=== PATIENT | female | born 1980 | race Hispanic/Latino ===

== ENCOUNTER 2018-04-21 03:45 | Inpatient (IN) | payer MEDICAID, SELFPAY ==
[2018-04-21] MEDS: Lactated Ringers 1,000 ML 50 ML IV ×2 (04:50→06:00)
[2018-04-21 05:07] VITALS: BMI 33.5
[2018-04-21 05:16] LABS: Hemoglobin 12.7 g/dl (12.0-15.0); Mean Corp Hgb Conc 33.4 g/gl (32-36); Mean Corpuscular Hgb 29.4 pg (27.0-32.0); Mean Platelet Vol. 11.1 fl (6.2-12.0); Platelet Count 172 K/mm3 (150-450); RBC Distribution Width CV 13.2 % (11.6-14.6); RBC Distribution Width SD 41.8 fl (35.1-43.9); Red Blood Count 4.32 M/mm3 (4.2-5.4); White Blood Count 9.8 K/mm3 (4.4-11.0)
[2018-04-21 05:18] LABS: Scan Indicated on CBC? Y/N NO
--- NOTE | 2018-04-21 05:45 | PCM.HP.OB ---
History Date of Admission: 04/21/18 Final COCO: 05/20/18 Final COCO Source: US <20 weeks Gestational age: 35 Weeks and 6 Days History of this : This is a 38 year-old, G 5P4at 35 weeks gestational age c/o contractions- patient was found to be 4-5 cm and changed to 7cm in less than one hour of observation. pt has h/o GDMA1- controlled. pt denies other concerns at this time. Medical History: Medical History (Last Updated 04/21/18 @ 05:46 by Dayana Sharif MD) Advanced maternal age (AMA) in Gestational diabetes O24.419 NKDA Home Medications: Home Medications Prenatabs FA 1 tab PO DAILY 04/21/18 Smoking Status: Never smoker Alcohol: None Number of Fetus(es): 1 Heart Tracin mod dmitry, + accels, no decels. TOCO Analysis: q2-4 min History Past Pregnancies: Past Pregnancies Delivery Date Name GA/Weeks Outcome Route Weight Infant Gender Labor Length Anesthesia Delivery Location Provider FOB Labs: O+, HIV neg, HEPB neg, RUB Imm, Syph Neg, GBS unknown - rapid is pending Expected Infant Delivery Method: Spontaneous Vaginal Review of Systems Constitutional: Denies: Anorexia Cardiovascular: Denies: Chest Pain Gastrointestinal: Reports: Abdominal Pain - from contraction pain Physical Exam General: Alert, Oriented x3 Abdomen: Soft, Gravid Neurological: Cranial nerves II-XII grossly intact COMPLETION ENGINEER: Normal external genitalia Estimated gestational size: Appropriate for gestational size Presentation: Cephalic Cervix Dilation (cm): 7.5 Station: -2 Effacement (%): 80 Assessment/Plan This is a 38 year-old, G 5, P4, at 35 weeks gestational age. in active labor- h/o GDMA1- well controlled 1) admit to L&D 2) monitor FHR/TOCO 3) epidural 4) Rapid GBS 5) anticipate
[2018-04-21] MEDS: fentaNYL-bupivacaine (epidural) 100 ML BAG EPIDURAL (05:46)
[2018-04-21] MEDS: Betamethasone/Betamethasone 30 MG/5 ML Vial 12 MG IM (06:12)
[2018-04-21 06:21] LABS: Bedside Glucose 104 mg/dL (70-110)
--- NOTE | 2018-04-21 06:33 | PLAC_PTH ---
PATIENT: QUINTEN CARDOZA LOC: [facility] U#:[id number] AGE/SX: 38/F ROOM: [facility] RE04/21/[address]: Dr. Dayana Sharif, MDDOB: 1980 BED: 1 DIS: 04/23/2018 SPEC #: [id number] RECD: 04/22/18 06:15 STATUS: PIERRE MARÍA #: [id number] THU: 04/21/18 06:[address]: Dayana Sharif DEPT: SURGICAL PATHOLOGY RECD BY: Agusto Merrill Tissues: Placenta, NOS Procedures: Surgery Specimen Level V HEADER OPERATION: Vaginal delivery PRE-OP DIAGNOSIS: labor TISSUE SUBMITTED: Placenta MICROSCOPIC DIAGNOSIS Placenta: Placental disc - third trimester placenta (310 gm). Focal chronic villitis of unknown etiology. Focal area of intraparenchymal hemorrhage. Focal increased perivillous and intervillous fibrin deposition. Membranes - no pathologic diagnosis. Umbilical cord - three blood vessels and no pathologic diagnosis. MAR:landry 04/24/18 MICROSCOPIC DESCRIPTION Slides are reviewed. GROSS DESCRIPTION SPECIMEN: PLACENTA / CLINICAL INFORMATION: A. Weight: 2.175 kg B. Gestational Age: 35 weeks C. Sex: Male PLACENTAL WEIGHT (POST FIXATION): 310 gm PLACENTAL DIMENSIONS: 16 x 11 x 3 cm PLACENTAL SHAPE: Usual ovoid PLACENTAL WEIGHT FOR GESTATIONAL AGE: Within 10-99th percentile MEMBRANES - Present A. Insertion: Marginal B. Site of rupture from edge: 5 cm from edge of placental disc C. Color of membrane: Street-mcguire D. Abnormalities: None UMBILICAL CORD - Present A. Color: Street[place]mcguire B. Insertion: Paracentral C. Length: 23 cm D. Diameter: 1.3 cm E. Number of vessels: Three F. Abnormalities: None PLACENTAL DISC - Present A. Color of surface: Street-mcguire B. surface abnormalities: None C. Maternal cotyledons: Intact with minimal tears D. Attached retro placental clot: No clot E. Cut surface: Dark red and spongy F. Lesions: Sections reveal two street, indurated lesions each measuring 0.3 cm in greatest dimension. G. Separate clot: Absent SECTIONS SUBMITTED: 1. Membrane roll 2. Cord, maternal end 3. Cord, end 4. Placental disc, and maternal surfaces, lesions 5. Placental disc, and maternal surfaces 6. Placental disc, and maternal surfaces SJ:landry 04/23/18 TC:5 CPT: 34833
[2018-04-21 06:37] LABS: Group B Strep DNA By PCR POSITIVE (Negative); Probe Check PASS
[2018-04-21] MEDS: Oxytocin 30 units/NS 500 ml 30 UNITS/500 ML IV.SOLN 334 UNITS IV (06:40)
--- NOTE | 2018-04-21 06:41 | PCM.OB.VAG ---
Vaginal Delivery Maternal Presentation: Active Labor Amniotic Membrane Rupture Type: Artificial Amniotic Fluid Description: Clear Final COCO: 05/20/18 Gestational age: 35 Weeks and 6 Days Date of Procedure: 04/21/18 Pre-Operative Diagnosis: spontaneous labor Post-Operative Diagnosis: same, Live male Surgery/ Procedure Performed: Spontaneous Vaginal Delivery Type of Anesthesia: Epidural Description of Procedure: of live male infant born without complication. Umbilical cord very short at time of delivery- clamped and cut. vigorous. Presentation: Vertex Placental Delivery Description: Spontaneous Cord Vessel Description: 3 Vessels Cord Entanglement: None Estimated Blood Loss: 250 (1 minute): 8 (5 minute): 9 Episiotomy Description: None Laceration: None Medications given after delivery: IV Pitocin Complications: None
[2018-04-21] MEDS: Oxytocin 30 units/NS 500 ml 30 UNITS/500 ML IV.SOLN 167 UNITS IV (07:40)
[2018-04-21 08:45] LABS: Bedside Glucose 103 mg/dL (70-110)
[2018-04-21 08:45] LABS: Bedside Glucose 96 mg/dL (70-110)
[2018-04-21 11:12] VITALS: BP 99/48; PULSE 70; RESP 18; TEMP 36.7
[2018-04-21 15:18] VITALS: BP 104/68; PULSE 85; RESP 20; TEMP 36.8
[2018-04-21] MEDS: Ibuprofen 600 MG Tablet PO (19:56)
[2018-04-21 19:57] VITALS: BP 96/44; PULSE 85; RESP 16; TEMP 36.8
[2018-04-22 00:30] VITALS: BP 101/54; PULSE 75; RESP 16; TEMP 36.4
[2018-04-22 04:30] VITALS: BP 100/51; PULSE 75; RESP 16; TEMP 36.7
[2018-04-22 06:46] LABS: Bedside Glucose 98 mg/dL (70-110)
[2018-04-22 08:33] VITALS: BP 102/61; PULSE 77; RESP 16; TEMP 36.6; O2SAT 97
--- NOTE | 2018-04-22 08:48 | PN.OBGYN_ITS ---
Patient Problems: Active and Suspected Problems (Last Updated 04/21/18 @ 05:46 by Dayana Camarena MD) Gestational diabetes (Acute) Subjective: Doing well per patient and nursing staff. Speaks Taiwanese. Ambulating and taking PO without difficulty. Voiding and passing flatus. . Taking Motrin for pain. Denies chest pain, SOB, leg pain, increased vaginal bleeding or clots. Planning to go home tomorrow. - Physical Exam General: Alert, Oriented x3, Cooperative Lungs: Clear to auscultation, Normal air movement, No rhonchi, No wheeze Cardiovascular: Regular rate, Regular Rhythm, No murmurs Abdomen: Bowel Sounds Present, Soft, - - fundus firm 2 below U Extremities: No edema Psych/Mental Status: Normal Affect, Appropriate Vital Signs Temp Pulse Resp BP Pulse Ox 97.8 F 77 16 102/61 97 04/22/18 08:33 04/22/18 08:33 04/22/18 08:33 04/22/18 08:33 04/22/18 08:33 Oxygen Delivery Method Room Air Weight: 183 lb 9.6 oz Body Mass Index (BMI) 33.5 Intake and Output for Last 24 Hours 04/20/18 04/21/18 04/22/18 23:59 23:59 23:59 Intake Total 1300 / 1300 Output Total 400 / 400 Balance 900 / 900 POC Glucose 04/22/18 04/21/18 04/21/18 06:37 08:39 04:41 POC Glucose 98 103 96 Medical Necessity - Tobacco Use Smoking Status: Never smoker Assessment/Plan All Active Problems (Last Updated 04/21/18 @ 05:46 by Dayana Sharif MD) Gestational diabetes (Acute) A: vaginal GDM P: 1) Routine PP orders 2) BS slightly elevated, less than 103 3) Planning D/C home tomorrow.
[2018-04-22 13:59] VITALS: BP 109/56; PULSE 85; RESP 16; TEMP 37.1; O2SAT 100
[2018-04-22 19:55] VITALS: BP 118/61; PULSE 74; RESP 17; TEMP 36.7
[2018-04-23 01:10] VITALS: BP 92/47; PULSE 77; RESP 17; TEMP 36.2
--- NOTE | 2018-04-23 07:31 | PN.OBGYN_ITS ---
Patient Problems: Active and Suspected Problems (Last Updated 04/21/18 @ 05:46 by Dayana Camarena MD) Gestational diabetes (Acute) Objective: pt seen at bedside, doing well. pt reports pain well controlled- lochia mild. Breast feeding. - Physical Exam General: Alert, Oriented x3 Vital Signs Temp Pulse Resp BP Pulse Ox 97.2 F L 77 17 92/47 L 100 04/23/18 01:10 04/23/18 01:10 04/23/18 01:10 04/23/18 01:10 04/22/18 13:59 Oxygen Delivery Method Room Air Weight: 83.28 kg Body Mass Index (BMI) 33.5 Intake and Output for Last 24 Hours 04/21/18 04/22/18 04/23/18 23:59 23:59 23:59 Intake Total 1300 / 1300 Output Total 400 / 400 Balance 900 / 900 Medical Necessity - Tobacco Use Smoking Status: Never smoker Assessment/Plan All Active Problems (Last Updated 04/21/18 @ 05:46 by Dayana Sharif MD) Gestational diabetes (Acute) PPD#2, doing well routine care pain mgmt dc home pt is scheduled for Tubal ligation- she can expect call from office regarding date of surgery for salpingectomy.
--- NOTE | 2018-04-23 07:33 | DCINST_ITS ---
Discharge Diet: No Restrictions Discharge Activity: Return to Normal Activity, May not drive while taking narcotic pain medications., May Shower May resume sexual activity in: 4-6 weeks Additional Activity Instructions:: Nothing in the vagina for 4-6 weeks. You may return to work/school in 6 weeks. Call your doctor if your incision/area has: Continuous Slow Oozing, Sudden Increased Bleeding, Increased Pain/ Swelling, Increased Redness, Foul Smelling Discharge Additional Instructions: If you experience any of the following, contact your healthcare provider. * Bleeding that soaks a pad every hour for 2 hours * Fever 100.4 or higher * Unrelieved incision or abdominal pain * Swelling, redness, discharge or bleeding from your incision or episiotomy site * Your incision begins to separate * Problems urinating (including inability to urinate or burning while urinating) . * Visual changes * Severe headache * Flu-like symptoms * Pain or redness in one of both of your breasts * Pain, warmth, tenderness or swelling in your legs, especially the calf area * Frequent nausea and vomiting * Symptoms of depression or anxiety If you experience any of the following, call 911 or go to the nearest Emergency Room. * Chest pain * Problems breathing * Seizure activity * Partial or complete paralysis of a body part, slurred speech, weakness or drooping of the face, or a sudden inability to walk or hold your balance Allergies/Adverse Reactions: Allergies No Known Allergies Allergy (Verified 04/21/18 06:11) Medications to take at Discharge Prenatabs FA 1 tab PO DAILY 04/21/18 Ibuprofen [Motrin] 800 mg PO Q8H PRN PRN #30 tab 04/23/18 The following prescriptions were given: Ibuprofen [Motrin] 800 mg PO Q8H PRN PRN #30 tab PRN Reason: Pain When: Call to make an appointment with your doctor in 6 weeks. If you had elevated Blood Pressure or 4th degree laceration you will need to be seen in 2 weeks.
[2018-04-23 08:00] VITALS: BP 86/62; PULSE 67; RESP 16; TEMP 36.5
[2018-04-24 14:46] LABS: Pathology Specimen OB SEE PATHOLOGY REPORT
[2018-04-29 15:19] LABS: Pathology Specimen OB SEE PATHOLOGY REPORT
--- NOTE | 2018-04-30 11:03 | NURSING ---
Attempted follow up phone call, husbands phone number was listed as personal property assessor he is at work. Will tell patient that we called and if she has any questions or concerns about her hospital stay she will call us back
== END 2018-04-23 10:30 | disposition home or self-care (01) | DRG 373 ==
PROVIDERS: Admitting Provider Obstetrics & Gynecology; Visit Provider Obstetrics & Gynecology
DX: O60.14X0 Preterm labor third trimester with preterm delivery third trimester, not applicable or unspecified (principal); O24.420 Gestational diabetes mellitus in childbirth, diet controlled; O69.3XX0 Labor and delivery complicated by short cord, not applicable or unspecified; Z3A.35 35 weeks gestation of pregnancy; Z37.0 Single live birth
CPT/HCPCS: 59025; 59050; 82962; 85027; 86850; 86900; 87653; 88307; 99218; J7120; G0378; J0702

== ENCOUNTER 2018-06-18 06:50 | Day surgery (SDC) | payer MEDICAID, SELFPAY ==
[2018-06-18 07:20] LABS: Hematocrit 42.4 % (37-47); Hemoglobin 13.8 g/dl (12.0-15.0); Mean Corp Hgb Conc 32.5 g/gl (32-36); Mean Corpuscular Hgb 28.6 pg (27.0-32.0); Mean Corpuscular Volume 87.8 fL (81-99); Mean Platelet Vol. 10.5 fl (6.2-12.0); Platelet Count 187 K/mm3 (150-450); RBC Distribution Width CV 14.1 % (11.6-14.6); RBC Distribution Width SD 44.9 fl (35.1-43.9); Red Blood Count 4.83 M/mm3 (4.2-5.4); White Blood Count 5.5 K/mm3 (4.4-11.0)
[2018-06-18 07:21] LABS: Internal QC Validated? YES +Cl - CLEAR BKGD; Pregnancy, Urine Negative Negative
[2018-06-18 07:41] LABS: Scan Indicated on CBC? Y/N NO
--- NOTE | 2018-06-18 09:35 | FALS_PTH ---
PATIENT: QUINTEN CARDOZA LOC: [facility] [place] U#:[id number] AGE/SX: 38/F ROOM: RE06/18/[address]: Dr. Dayana Sharif, MDDOB: 1980 BED: DIS: 06/18/2018 SPEC #: [id number] RECD: 06/18/18 14:51 STATUS: PIERRE MARÍA #: [id number] THU: 06/18/18 09:[address]: Dayana Sharif DEPT: SURGICAL PATHOLOGY RECD BY: Araceli Goetz ENTERED: 06/19/18 09:00 SP TYPE: FALL TUBES OTHR DR: Jami Primary Care Phys Tissues: Fallopian tube Procedures: Surgery Specimen Level II HEADER OPERATION: Laparoscopic salpingectomy PRE-OP DIAGNOSIS: Desired sterilization TISSUE SUBMITTED: Bilateral fallopian tubes MICROSCOPIC DIAGNOSIS Bilateral fallopian tubes, salpingectomy: Bilateral fallopian tubes including fimbrial ends, no pathologic diagnosis. MAR:landry 06/22/18 MICROSCOPIC DESCRIPTION Slides are reviewed. GROSS DESCRIPTION Received is one container labeled with the patient's name and designated bilateral fallopian tubes. The specimen consists of two fallopian tubes including fimbrial ends with an average length of 4 cm and has an average diameter of 0.6 cm. One fallopian tube is inked black. Both fallopian tubes have normal fimbriated ends. No mass lesions are identified. Health Informatics Instructor sections are submitted in two cassettes as follows: 1 - one fallopian tube, 2 - the other fallopian tube. / AM:landry 06/19/18 TC:5 CPT: 86594 x2
[2018-06-18] MEDS: Bupivacaine 0.25% 30 ML Vial (10:40)
--- NOTE | 2018-06-18 10:47 | PCM.OP.BLANK ---
Operative Report Date of Procedure: 06/18/18 Surgeon: Dr. aDyana Sharif Link Knitting Machine Operator: none Preoperative diagnosis: Sterilization request Procedure performed: Laparoscopic bilateral salpingectomy Postoperative diagnosis: Sterilization request complications: None Estimated blood loss: 5 cc Drains: none Specimens collected: Bilateral tubes Findings: Normal tubes and ovaries bilaterally uterus sounded to approximately 8 cm. anesthesia: General Operative note: After informed consent was obtained patient was taken to the operating room she was placed in supine position she was given anesthesia. She was then placed in the [facility] stirru and she was prepped and draped in normal sterile fashion. Bladder was drained prior to the start of procedure approximately 100 cc of clear yellow urine was expelled. At this time attention was turned to the vaginal portion where weighted speculum placed at posterior fornix vagina single-tooth tenaculum was used to gently grasp the internal the cervix. uterus was gently sounded to approximately 8cm. Uterine manipulator was placed without difficulty. Legs then placed in parallel with the abdomen the tenaculum and the weighted speculum were removed. 2 towel clamps were placed superior to umbilicus. After Marcaine was injected superior to umbilicus a small incision was made and a 5 mm trocar was placed under direct visualization. CO2 gas was used to insufflate the intra-abdominal cavity. Upon inspection no gross abnormalities uterus tubes and ovaries appeared to be normal. At this time then the RLQ and LLQ port was placed again Marcaine was injected small incision was made a knife and the 5 mm trocar was placed. At this time then tubes were traced back to the fimbriated ends. Ligasure was used to coagulate and ligate along mesosalpinx bilaterally until tubes removed completely. Good hemostasis was appreciated. At this time procedure was deemed complete successful. The gas was desufflated on from the intra-abdominal cavity. The trochars were removed. Skin was closed using 4-0 Monocryl in a subcutaneous fashion. Dermabond glue was placed. Instrument lap and needle counts were correct ?2. The uterine manipulator was removed. Vaginal sweep was performed it was negative. There were no complications anticipated normal postoperative course for this patient.
--- NOTE | 2018-06-18 10:51 | PCM.DC.TUB ---
Discharge Diet: No Restrictions, - - Increase fluid intake for 48 hours. Discharge Activity: Return to Normal Activity, May Drive - when you are no longer taking narcotic pain medications., May Shower, May Take a Tub Bath - in 7 days., - - Ambulate often the next week after surgery. May resume sexual activity in: 2 weeks Additional Activity Instructions:: Nothing in the vagina for the next 5 days. Call your doctor if your incision/area has: Continuous Slow Oozing, Sudden Increased Bleeding, Increased Pain/ Swelling, Increased Redness, Foul Smelling Discharge, Swelling at the incision site Call your doctor if you observe: Fever of 101 or Higher Cleanse incision/area with: - - you have skin glue over incision sites- let soap and water run over them and dab dry Allergies/Adverse Reactions: Allergies No Known Allergies Allergy (Verified 06/11/18 14:00) Medications to take at Discharge Ibuprofen [Motrin] 800 mg PO Q8H PRN PRN #30 tab 06/18/18 The following prescriptions were given: Ibuprofen [Motrin] 800 mg PO Q8H PRN PRN #30 tab PRN Reason: Pain Primary Care Physician: Care Physician,No Primary [Primary Care Provider] - Test Results: Test results from this visit will be discussed in further detail at your follow-up appointment, if applicable.
[2018-06-18 11:05] VITALS: BP 120/71; BP 94/45; PULSE 76; RESP 12; TEMP 36.2; O2SAT 95
[2018-06-18 11:15] VITALS: BP 120/71; BP 99/62; PULSE 86; RESP 16; O2SAT 97
[2018-06-18 11:30] VITALS: BP 115/70; BP 120/71; PULSE 78; RESP 16; O2SAT 98
[2018-06-18 11:45] VITALS: BP 108/68; BP 120/71; PULSE 78; RESP 16; TEMP 36.4; O2SAT 95
[2018-06-18] MEDS: HYDROcodone Bitartrate/Apap 5/325 Tablet PO (12:05)
[2018-06-18] MEDS: Ketorolac 30 MG/ML Syringe IV (12:29)
[2018-06-18 13:55] VITALS: BP 112/57; BP 120/71; PULSE 18; RESP 18; TEMP 36.6; O2SAT 96
== END 2018-06-18 14:00 | disposition home or self-care (01) ==
LOC: SDC 07:57 → AC 07:58
PROVIDERS: Visit Provider Obstetrics & Gynecology
PROC: (CPT 58661; principal; 2018-06-18 09:20)
DX: Z30.2 Encounter for sterilization (principal); Z86.32 Personal history of gestational diabetes
CPT/HCPCS: 00840; 58661; 36415; 81025; 85027; 88302; J7120; J2405